=== PATIENT | female | born 1945 | race Caucasian/White ===

== ENCOUNTER 2019-05-30 07:39 | Day surgery (SDC) | payer MEDICARE, OTHER ==
[~2019-05-30] VITALS: Ht 157.5 cm; Wt 79.4 kg
[2019-05-30] VITALS (9 sets, daily range): BP systolic 143–177; BP diastolic 70–89
[~2019-05-30 07:39] MED LIST: BENICAR5 MG PO; BYSTOLIC5 MG PO; GABAPENTIN100 MG PO; JANUVIA25 MG PO; NEXIUM20 M1 PO; VOLTAREN GEL
[2019-05-30] MEDS ORDERED: BENICAR HCT 401 EACH ORAL (08:35)
[2019-05-30] MEDS ORDERED: AZOPT10 ML OP (08:35)
[2019-05-30] MEDS ORDERED: NORVASC10 MG ORAL (08:35)
[2019-05-30] MEDS ORDERED: DUEXIS 800-26.1 EACH PO (08:35)
[2019-05-30] MEDS ORDERED: FARXIGA10 MG PO (08:35)
[2019-05-30] MEDS ORDERED: GLIPIZIDE5 MG ORAL (08:35)
[2019-05-30] MEDS ORDERED: OZEMPIC SQ (08:35)
[2019-05-30] MEDS ORDERED: ISTALOL2.5 M1 OP (08:35)
[2019-05-30] MEDS ORDERED: XALATAN2.5 ML RIGHT EYE (08:35)
[2019-05-30] MEDS ORDERED: cefOXitin Sod 1 GM in D5W 55 ML IVPB ONE (09:00)
[2019-05-30] MEDS ORDERED: Midazolam 2mg/2ml Inj ONE (09:01)
[2019-05-30] MEDS ORDERED: fentaNYL 100 mcg/2 mL IV ONE (09:01)
[2019-05-30] MEDS ORDERED: Lidocaine 1% MPF 10mg/ml 5ml ONE (09:08)
[2019-05-30] MEDS ORDERED: Dexamethasone 4mg/ml vial ONE (09:08)
[2019-05-30] MEDS ORDERED: LR 1000ml 1,000 ML IVLG SCH (09:09)
[2019-05-30] MEDS ORDERED: LORazepam Inj 2mg/ml 1ml IV PRN (09:15)
[2019-05-30] MEDS ORDERED: HYDROcodone/Acetamin 7.5/325 tab ORAL PRN (09:15)
[2019-05-30] MEDS ORDERED: fentaNYL 100 mcg/2 mL IV PRN (09:15)
[2019-05-30] MEDS ORDERED: Metoclopramide 10mg/2ml Inj IVP PRN (09:15)
[2019-05-30] MEDS ORDERED: Labetalol 5mg/ml 20ml vial IV PRN (09:15)
[2019-05-30] MEDS ORDERED: Atropine Sulfate 0.4mg/ml inj IVP PRN (09:15)
[2019-05-30] MEDS ORDERED: HYDROcodone/Acetamin 5/325 tab ORAL PRN ×2 (09:15→17:16)
[2019-05-30] MEDS ORDERED: Ketorolac 30mg Inj IV PRN ×2 (09:15)
[2019-05-30] MEDS ORDERED: DiphenhydrAMINE 50mg/ml Inj IVP PRN ×2 (09:15→17:16)
[2019-05-30] MEDS ORDERED: oxyCODONE HCL/Acetaminophen 5/325mg ORAL PRN (09:15)
[2019-05-30] MEDS ORDERED: Acetaminophen (Non formulary) 100 ML IV ONE (09:15)
[2019-05-30] MEDS ORDERED: Midazolam 2mg/2ml Inj IVP PRN (09:15)
[2019-05-30] MEDS ORDERED: Hydromorphone 0.5mg/0.5ml inj IVP PRN (09:15)
[2019-05-30] MEDS ORDERED: Meperidine 25mg/0.5ml Inj (FOR RIGORS ONLY) IV PRN (09:15)
--- NOTE | 2019-05-30 09:17 | Anethesia Preoperative Eval ---
Anesthesia Pre-op PMH/ROS General Date of Evaluation: May 30, 2019 Time of Evaluation: 09:52 Anesthesiologist: Ericka ASA Score: ASA 3 Mallampati Score Class I : Soft palate, uvula, fauces, pillars visible Class II: Soft palate, uvula, fauces visible Class III: Soft palate, base of uvula visible Class IV: Only hard plate visible Mallampati Classification: Class II Surgeon: Leilani Diagnosis: Abd Pain Surgical Procedure: Hysteroscopy, D/C Anesthesia History: none Family History: no anesthesia problems Allergies: Coded Allergies: No Known Allergies (Verified , 05/30/19) Medications: see eMAR Patient NPO?: Yes Past Medical History Cardiovascular: Reports: HTN Gastrointestinal/Genitourinary: Reports: GERD Endocrine: Reports: DM HEENT: Reports: cataract (L), cataract (R), glaucoma Musculoskeletal/Integumentary: Reports: OA Other: obesity - BMI 33 PSxH Narrative: L THR Anesthesia Pre-op Phys. Exam Physician Exam Last Vital Signs Date Time Temp Pulse Resp B/P (MAP) Pulse Ox O2 Delivery O2 Flow Rate FiO2 05/30/19 08:22 Room Air 05/30/19 08:14 97.5 76 18 147/77 99 Constitutional: NAD Neurologic: CN 2-12 intact Cardiovascular: RRR Respiratory: CTA Gastrointestinal: S/NT/ND Airway Exam Mallampati Score: Class II MO: full ROM: limited Teeth: missing Anesthesia Pre-op A/P Risk Assessment & Plan Assessment: ASA 3 Plan: GA, SED Status Change Before Surgery: No Pre-Antibiotics Dru Gram Ancef, 1Gram Cefoxitin IV Given Within 1 Hr of Incision: Yes Time Given: 10:41 Salbador Barnett MD May 30, 2019 09:17
--- NOTE | 2019-05-30 09:18 | Immediate Post-Op Evaluation ---
Immediate Post-Op Evalulation Immediate Post-Op Evalulation Procedure: Hysteroscopy, D/C Date of Evaluation: May 30, 2019 Time of Evaluation: 11:24 IV Fluids: 600 LR Blood Products: 0 Estimated Blood Loss: 25 Urinary Output: 100 Blood Pressure Systolic: 123 Blood Pressure Diastolic: 89 Pulse Rate: 92 Respiratory Rate: 16 O2 Sat by Pulse Oximetry: 100 Temperature (Fahrenheit): 98.7 Pain Score (1-10): 2 Nausea: No Vomiting: No Complications 0 Patient Status: awake, reacts, patent, none Hydration Status: adequate Dru Gram Ancef, 1Gram Cefoxitin IV Given Within 1 Hr of Incision: Yes Time Given: 10:41 Salbador Barnett MD May 30, 2019 09:18
--- NOTE | 2019-05-30 09:19 | 48 Hour Post Anesthesia Eval ---
Post Anesthesia Evaluation Procedure: Hysteroscopy, D/C Date of Evaluation: May 30, 2019 Time of Evaluation: 13:43 Blood Pressure Systolic: 164 0: 81 Pulse Rate: 78 Respiratory Rate: 18 Temperature (Fahrenheit): 98.6 O2 Sat by Pulse Oximetry: 99 Airway: patent Nausea: No Vomiting: No Pain Intensity: 2 Hydration Status: adequate Cardiopulmonary Status: Stable Mental Status/LOC: patient returned to baseline Follow-up Care/Observations: 0 Post-Anesthesia Complications: 0 Follow-up care needed: ready to discharge Salbador Barnett MD May 30, 2019 09:19
[2019-05-30] MEDS ORDERED: cefOXitin 1gm Inj ONE (09:56)
[2019-05-30] MEDS ORDERED: NS Irrig 1000ml ONE (10:00)
[2019-05-30] MEDS ORDERED: Propofol 200mg/20ml IV ONE (10:00)
[2019-05-30] MEDS ORDERED: LR 1000ml ONE (10:00)
[2019-05-30] MEDS ORDERED: Sterile Water Irrig 1000ml IRRIG ONE (10:00)
--- NOTE | 2019-05-30 10:17 | Pre-Procedure Note/Attestation ---
Pre-Procedure Note/Attestation Complete Prior to Procedure Planned Procedure: not applicable Procedure Narrative: hysteroscopy dilation and curettage Indications for Procedure Pre-Operative Diagnosis: postmenopausal bleeding - rule out endometrial CA Attestation I attest that I discussed the nature of the procedure; its benefits; risks and complications; and alternatives (and the risks and benefits of such alternatives ), prior to the procedure, with the patient (or the patient's legal provider service representative). I attest that, if there was a reasonable possibility of needing a blood transfusion, the patient (or the patient's legal provider service representative) was given the [facility] standardized written summary, pursuant to the [employer] Blood Safety Act ([place] Health and Safety Code # 1645, as amended). I attest that I re-evaluated the patient just prior to the surgery and that there has been no change in the patient's H&P, except as documented below: Dorina Duke MD May 30, 2019 10:17
[2019-05-30] MEDS ORDERED: Tylenol #3 tab (300mg/30mg) ORAL PRN (17:16)
[2019-05-30] MEDS ORDERED: D5 1/2NS 1,000 ML IV SCH (17:16)
[2019-05-30] MEDS ORDERED: Hydromorphone 0.5mg/0.5ml inj SUBQ PRN (17:16)
--- NOTE | 2019-06-03 08:45 | Operative Note - Dictated ---
DATE OF OPERATION: 05/30/2019 PREOPERATIVE DIAGNOSIS: Postmenopausal bleeding, large posterior fibroid, rule out endometrial CA. POSTOPERATIVE DIAGNOSES: Postmenopausal bleeding, large posterior fibroid, rule out endometrial CA. PROCEDURE: Hysteroscopy, dilation and curettage. SURGEON: Dorina Duke M.D. ACCESSORIES REPAIRER: None. ANESTHESIOLOGIST: Salbador Barnett M.D. ANESTHESIA: General. ESTIMATED BLOOD LOSS: Minimal. COMPLICATIONS: None. PROCEDURE IN DETAIL: After ensuring informed consent, the patient was taken to the operating room where general anesthesia was induced. The patient was sterilely prepped and draped. Weighted speculum was placed in the vagina. Cervix was dilated to an 8 Hegar dilator. Hysteroscope was placed inside the uterine cavity. Uterine cavity was distended with normal saline. There were no intracavitary lesions except for wall of the uterus appeared to be irregular and slightly protruded into the cavity suggestive of an intramural fibroid. Hysteroscope was withdrawn. Curettage was performed. A small piece of the myometrium was biopsied. Please note that endocervical curettage was performed first. At the end of the procedure, all instruments were removed from the vagina. There was minimal bleeding and the patient was stable when she was sent to the recovery area. All instrument and lap counts were correct x2. Dorina Duke M.D. DR: WILLIAM JOB#: [id number] CC: ISIDRA
== END 2019-05-30 13:20 | disposition home or self-care (01) ==
LOC: SUR 07:39
DX: N95.0 Postmenopausal bleeding (principal); D25.9 Leiomyoma of uterus, unspecified; I10 Essential (primary) hypertension; E11.9 Type 2 diabetes mellitus without complications; K21.9 Gastro-esophageal reflux disease without esophagitis; M19.90 Unspecified osteoarthritis, unspecified site; E66.9 Obesity, unspecified; Z68.32 Body mass index [BMI] 32.0-32.9, adult; Z96.642 Presence of left artificial hip joint
CPT/HCPCS: 58558; J0131; J0690; J0694; J2250; J2405; J2704; J3010; J7030; J7120; 94003; 94150